=== PATIENT | male | born 1960 | race African-American/Black ===

== ENCOUNTER 2019-03-05 20:38 | Emergency (ER) | payer MEDICARE ==
[~2019-03-05] VITALS: Ht 177.8 cm; Wt 82.0 kg
[2019-03-05] MEDS ORDERED: KETOROLAC 30MG/ML VIAL IV STA (21:07)
[2019-03-05] MEDS ORDERED: ONDANSETRON HCL 4MG/2ML INJ IV STA (21:07)
[2019-03-05 22:01] LABS: BASOPHILS % 0.6 % (0.0-2.0); HEMATOCRIT. 42.6 % (42.0-52.0); HEMOGLOBIN. 14.5 g/dL (14.0-18.0); LYMPHOCYTES % 13.5 % (20.0-50.0); MEAN CORPUSCULAR HEMOGLOBIN 29.5 pg (28.0-32.0); MEAN CORPUSCULAR VOLUME 86.6 fL (80.0-94.0); MONOCYTES % 7.2 % (2.0-8.0); NEUTROPHILS % 78.7 % (40.0-76.0); PLATELET 180 x1000/uL (130-400); RED BLOOD CELL COUNT 4.92 mill/uL (4.7-6.1); RED CELL DISTRIBUTION WIDTH 13.6 % (11.6-14.6)
[2019-03-05 22:06] LABS: CHLORIDE 101 mEq/L (98-107)
[2019-03-05] MEDS ORDERED: IOHEXOL-300 100 ML BOTTLE ONE (23:05)
[2019-03-05 23:07] LABS: CLARITY URINE CLOUDY (CLEAR); COLOR URINE ORANGE (YELLOW); KETONES URINE TRACE (NEGATIVE); LEUKOCYTE ESTERASE URINE 1+ (NEGATIVE); NITRITE URINE NEGATIVE (NEGATIVE); OCCULT BLOOD URINE 3+ (NEGATIVE); PROTEIN URINE 2+ (NEGATIVE); SPECIFIC GRAVITY URINE 1.021 (1.005-1.030)
[2019-03-06 00:40] VITALS: BP 127/70
== END 2019-03-06 00:30 | disposition home or self-care (01) ==
LOC: ER 20:38
DX: N20.1 Calculus of ureter (principal)
CPT/HCPCS: 36415; 74177; 80053; 81003; 83690; 85025; 96374; 96375; 99284; J1885; J2405; Q9967